=== PATIENT | female | born 2000 | race Caucasian/White ===

== ENCOUNTER 2019-10-18 21:49 | Emergency (ER) | payer BC, MEDICAID ==
[~2019-10-18] VITALS: Ht 160 cm; Wt 68.0 kg
[~2019-10-18 21:49] MED LIST: AMLO10TA80 PO; CETI10CA8 PO; ENAL10TA PO; FAMO20TA8 PO; FLUT9.9S NS; METO-293 PO
[2019-10-19 01:24] LABS: CLARITY URINE CLOUDY (CLEAR); COLOR URINE YELLOW (YELLOW); KETONES URINE TRACE (NEGATIVE); LEUKOCYTE ESTERASE URINE 1+ (NEGATIVE); NITRITE URINE POSITIVE (NEGATIVE); OCCULT BLOOD URINE 1+ (NEGATIVE); PH URINE 5.5 (4.5-8.0); PROTEIN URINE 3+ (NEGATIVE); SPECIFIC GRAVITY URINE 1.019 (1.005-1.030); UROBILINOGEN URINE 0.2 E.U./dL (0.2-1.0)
[2019-10-19 02:20] VITALS: BP 134/94
== END 2019-10-19 02:22 | disposition home or self-care (01) ==
LOC: ER 22:00
DX: N39.0 Urinary tract infection, site not specified (principal); I12.9 Hypertensive chronic kidney disease with stage 1 through stage 4 chronic kidney disease, or unspecified chronic kidney disease; N18.9 Chronic kidney disease, unspecified
CPT/HCPCS: 81003; 81025; 87077; 87186; 99283

== ENCOUNTER 2019-11-16 17:14 | Emergency (ER) | payer BC ==
[~2019-11-16] VITALS: Ht 165.1 cm; Wt 76.0 kg
[2019-11-16 17:57] VITALS: BP 161/104
== END 2019-11-16 23:03 | disposition left against medical advice (07) ==
LOC: ER 17:20
DX: Z53.21 Procedure and treatment not carried out due to patient leaving prior to being seen by health care provider (principal)

== ENCOUNTER 2021-01-20 12:42 | Emergency (ER) | payer BC, MEDICAID ==
[~2021-01-20] VITALS: Ht 160 cm; Wt 75.0 kg
[~2021-01-20 12:42] MED LIST changes: -ENAL10TA PO; +ENAL10TA19 PO
[2021-01-20 13:54] LABS: BASOPHILS % 1.3 % (0.0-2.0); EOSINOPHILS % 3.5 % (0.0-5.0); HEMATOCRIT. 31.8 % (36.0-48.0); LYMPHOCYTES % 22.8 % (20.0-50.0); MEAN CORPUSCULAR HEMOGLOBIN 25.2 pg (28.0-32.0); MEAN CORPUSCULAR VOLUME 80.2 fL (81.0-99.0); MEAN PLATELET VOLUME 9.7 fl (7.4-10.4); MONOCYTES % 4.4 % (2.0-8.0); PLATELET 353 x1000/uL (130-400); RED BLOOD CELL COUNT 3.97 mill/uL (4.2-5.4); RED CELL DISTRIBUTION WIDTH 16.7 % (11.6-14.6)
[2021-01-20] MEDS ORDERED: SODIUM CHLORIDE 0.9% 1,000 ML IV ONE (14:00)
[2021-01-20 14:05] LABS: CHLORIDE 107 mEq/L (98-107)
[2021-01-20 14:09] LABS: ETHANOL BLOOD < 10 mg/dL
[2021-01-20 14:14] LABS: CLARITY URINE CLEAR (CLEAR); COLOR URINE YELLOW (YELLOW); KETONES URINE NEGATIVE (NEGATIVE); LEUKOCYTE ESTERASE URINE NEGATIVE (NEGATIVE); NITRITE URINE NEGATIVE (NEGATIVE); OCCULT BLOOD URINE 2+ (NEGATIVE); PROTEIN URINE 2+ (NEGATIVE); SPECIFIC GRAVITY URINE 1.008 (1.005-1.030); UROBILINOGEN URINE 0.2 E.U./dL (0.2-1.0)
[2021-01-20 14:17] LABS: HCG SCREEN NEGATIVE
[2021-01-20 14:35] LABS: *AMPHETAMINES SCREEN URINE NEGATIVE (NEGATIVE); *BARBITURATES SCREEN URINE NEGATIVE (NEGATIVE); *BENZODIAZEPINES SCREEN URINE NEGATIVE (NEGATIVE); *COCAINE SCREEN URINE NEGATIVE (NEGATIVE)
[2021-01-20 14:36] LABS: CANNABINOID URINE SCREEN NEGATIVE (NEGATIVE); METHADONE URINE SCREEN NEGATIVE (NEGATIVE); OPIATES URINE SCREEN NEGATIVE (NEGATIVE); PHENCYCLIDINE URINE SCREEN NEGATIVE (NEGATIVE)
[2021-01-20 14:44] LABS: INR 0.9; PROTHROMBIN TIME 10.1 sec (9.6-11.0)
[2021-01-20 14:45] VITALS: BP 134/98
== END 2021-01-20 14:51 | disposition home or self-care (01) ==
LOC: ER 12:42
DX: N28.9 Disorder of kidney and ureter, unspecified (principal); I10 Essential (primary) hypertension; E86.0 Dehydration; Z79.899 Other long term (current) drug therapy
CPT/HCPCS: 36415; 71045; 80053; 80305; 80320; 81003; 81025; 83690; 84484; 84703; 85025; 85610; 93005; 96360; 99285; J7030; Z7610; G0480

== ENCOUNTER 2021-04-20 14:44 | Emergency (ER) | payer MEDICAID ==
[~2021-04-20] VITALS: Ht 152.4 cm; Wt 73.0 kg
[~2021-04-20 14:44] MED LIST changes: +ACET650T37 MT; +ALBU90AE IH; +ALLO100T PO; +AMIT25TA9 PO; +CALC30CA PO; +CARV25TA47 PO; +CHOL400D7 PO; -FAMO20TA8 PO; +FISH1CAP65 PO; +FLUO10TA3 PO; +FURO40TA5 PO; +GABA-290 PO; +HYDR200T35 PO; +MYCO500T PO; +PANT40TA51 PO; +PRED5TAB PO; +PRUC2TAB PO; +TURM500C6 PO
[2021-04-20] MEDS ORDERED: MORPHINE SULFATE 4 MG/ML CPJ (NOT FOR IM USE) IV STA (15:11)
[2021-04-20] MEDS ORDERED: ONDANSETRON HCL 4MG/2ML INJ IV STA (15:11)
[2021-04-20 15:47] LABS: BASOPHILS % 0.7 % (0.0-2.0); EOSINOPHILS % 1.2 % (0.0-5.0); HEMATOCRIT. 30.5 % (36.0-48.0); HEMOGLOBIN. 9.5 g/dL (12.0-16.0); LYMPHOCYTES % 19.8 % (20.0-50.0); MEAN CORPUSCULAR HEMOGLOBIN 22.9 pg (28.0-32.0); MEAN CORPUSCULAR VOLUME 73.8 fL (81.0-99.0); MEAN PLATELET VOLUME 9.1 fl (7.4-10.4); MONOCYTES % 3.2 % (2.0-8.0); NEUTROPHILS % 75.1 % (40.0-76.0); PLATELET 417 x1000/uL (130-400); RED BLOOD CELL COUNT 4.13 mill/uL (4.2-5.4); RED CELL DISTRIBUTION WIDTH 17.2 % (11.6-14.6)
[2021-04-20 15:51] LABS: CHLORIDE 104 mEq/L (98-107)
[2021-04-20 15:55] LABS: HCG SCREEN NEGATIVE; PROTHROMBIN TIME 10.3 sec (9.6-11.0)
[2021-04-20 16:00] LABS: CLARITY URINE TURBID (CLEAR); COLOR URINE YELLOW (YELLOW); KETONES URINE NEGATIVE (NEGATIVE); LEUKOCYTE ESTERASE URINE 2+ (NEGATIVE); NITRITE URINE NEGATIVE (NEGATIVE); OCCULT BLOOD URINE NEGATIVE (NEGATIVE); PH URINE 5.5 (4.5-8.0); PROTEIN URINE 3+ (NEGATIVE); SPECIFIC GRAVITY URINE 1.016 (1.005-1.030); UROBILINOGEN URINE 0.2 E.U./dL (0.2-1.0)
[2021-04-20] MEDS ORDERED: TOPUD PO (16:39)
[2021-04-20] MEDS ORDERED: SULF1TAB48 PO (16:39)
[2021-04-20 16:56] VITALS: BP 141/85
== END 2021-04-20 17:02 | disposition home or self-care (01) ==
LOC: ER 14:44
DX: N39.0 Urinary tract infection, site not specified (principal); R10.2 Pelvic and perineal pain; I12.9 Hypertensive chronic kidney disease with stage 1 through stage 4 chronic kidney disease, or unspecified chronic kidney disease; N18.9 Chronic kidney disease, unspecified; M32.9 Systemic lupus erythematosus, unspecified; Z88.1 Allergy status to other antibiotic agents
CPT/HCPCS: 36415; 74176; 80053; 81003; 81025; 83690; 84703; 85025; 85610; 96374; 96375; 99284; J2270; J2405

== ENCOUNTER 2021-05-08 14:06 | Inpatient (IN) | payer MEDICAID ==
[~2021-05-08] VITALS: Ht 160 cm; Wt 97.5 kg
[~2021-05-08 14:06] MED LIST changes: +SULF1TAB48 PO; +TOPUD PO
[2021-05-08 16:01] LABS: BASOPHILS % 0.6 % (0.0-2.0); EOSINOPHILS % 3.2 % (0.0-5.0); HEMATOCRIT. 24.6 % (36.0-48.0); HEMOGLOBIN. 7.7 g/dL (12.0-16.0); LYMPHOCYTES % 19.7 % (20.0-50.0); MEAN CORPUSCULAR HEMOGLOBIN 23.1 pg (28.0-32.0); MEAN CORPUSCULAR VOLUME 73.4 fL (81.0-99.0); MEAN PLATELET VOLUME 8.8 fl (7.4-10.4); NEUTROPHILS % 73.5 % (40.0-76.0); PLATELET 340 x1000/uL (130-400); RED BLOOD CELL COUNT 3.35 mill/uL (4.2-5.4); RED CELL DISTRIBUTION WIDTH 17.3 % (11.6-14.6)
[2021-05-08 16:06] LABS: CHLORIDE 114 mEq/L (98-107)
[2021-05-08] MEDS ORDERED: ACETAMINOPHEN 325MG TABLET PO PRN ×2 (19:30)
[2021-05-08] MEDS ORDERED: LORAZEPAM 0.5MG TABLET PO PRN (19:30)
[2021-05-08] MEDS ORDERED: ONDANSETRON HCL 4MG/2ML INJ IV PRN (19:30)
[2021-05-08] MEDS ORDERED: IPRATROPIUM/ALBUTEROL 0.5-3(2.5)MG/3ML NEB HHN PRN (19:30)
[2021-05-08] MEDS ORDERED: HYDROCODONE/ACETAMINOPHEN 5/325MG TABLET PO PRN (19:30)
[2021-05-08] MEDS ORDERED: DOCUSATE SODIUM 100MG CAPSULE PO PRN (19:30)
[2021-05-08 19:46] LABS: CLARITY URINE CLOUDY (CLEAR); COLOR URINE YELLOW (YELLOW); KETONES URINE NEGATIVE (NEGATIVE); LEUKOCYTE ESTERASE URINE TRACE (NEGATIVE); NITRITE URINE NEGATIVE (NEGATIVE); OCCULT BLOOD URINE TRACE (NEGATIVE); PROTEIN URINE 4+ (NEGATIVE); SPECIFIC GRAVITY URINE 1.014 (1.005-1.030); UROBILINOGEN URINE 0.2 E.U./dL (0.2-1.0)
[2021-05-08 20:11] LABS: *AMPHETAMINES SCREEN URINE NEGATIVE (NEGATIVE); *BARBITURATES SCREEN URINE NEGATIVE (NEGATIVE); *BENZODIAZEPINES SCREEN URINE NEGATIVE (NEGATIVE); *COCAINE SCREEN URINE NEGATIVE (NEGATIVE)
[2021-05-08 20:12] LABS: METHADONE URINE SCREEN NEGATIVE (NEGATIVE); OPIATES URINE SCREEN NEGATIVE (NEGATIVE); PHENCYCLIDINE URINE SCREEN NEGATIVE (NEGATIVE)
[2021-05-08 20:26] LABS: CANNABINOID URINE SCREEN NEGATIVE (NEGATIVE)
[2021-05-08] MEDS: CLONIDINE 0.1MG TABLET PO PRN (23:34)
[2021-05-09 05:43] LABS: BASOPHILS % 0.8 % (0.0-2.0); EOSINOPHILS % 3.5 % (0.0-5.0); HEMOGLOBIN. 7.7 g/dL (12.0-16.0); LYMPHOCYTES % 23.7 % (20.0-50.0); MEAN CORPUSCULAR HEMOGLOBIN 22.7 pg (28.0-32.0); MEAN CORPUSCULAR VOLUME 73.2 fL (81.0-99.0); MEAN PLATELET VOLUME 8.9 fl (7.4-10.4); MONOCYTES % 3.3 % (2.0-8.0); NEUTROPHILS % 68.7 % (40.0-76.0); PLATELET 314 x1000/uL (130-400); RED BLOOD CELL COUNT 3.41 mill/uL (4.2-5.4); RED CELL DISTRIBUTION WIDTH 17.9 % (11.6-14.6)
[2021-05-09] MEDS: CLONIDINE 0.1MG TABLET PO PRN (08:47)
[2021-05-09 08:50] VITALS: BP 160/109
[2021-05-09 09:30] VITALS: BP 145/96
[2021-05-09] MEDS ORDERED: *PATIENT'S OWN MEDICATION STORAGE XX SCH (09:30)
[2021-05-09 11:16] VITALS: BP 160/109
[2021-05-09 12:00] VITALS: BP 132/89
[2021-05-09] MEDS ORDERED: AMIT100T2 PO (13:08)
[2021-05-09] MEDS ORDERED: COLB PO (13:15)
[2021-05-09] MEDS ORDERED: MYCO500T PO (13:15)
[2021-05-09] MEDS ORDERED: COLC0.6C3 PO (13:15)
[2021-05-23] MEDS ORDERED: NAPR500T7 MT (16:58)
== END 2021-05-09 16:15 | disposition left against medical advice (07) | DRG 723 ==
LOC: ER 14:06 → 8WST 18:31 → EDBEDREQ 18:34 → EDBEDREQSVC 18:34 → CANRESERV 22:03 → ENRESERV 22:03 → EDBEDREQSVC 23:47 → EDBEDREQ 05-09 03:54 → ENRESERV 05-09 08:05
PROVIDERS: ADMIT Internal Medicine; ATTEND Internal Medicine
DX: T88.1XXA Other complications following immunization, not elsewhere classified, initial encounter (principal); M32.9 Systemic lupus erythematosus, unspecified; N18.4 Chronic kidney disease, stage 4 (severe); Q60.4 Renal hypoplasia, bilateral; D50.9 Iron deficiency anemia, unspecified; F17.200 Nicotine dependence, unspecified, uncomplicated; N28.9 Disorder of kidney and ureter, unspecified; D63.1 Anemia in chronic kidney disease; E66.9 Obesity, unspecified; E78.5 Hyperlipidemia, unspecified; E87.6 Hypokalemia; J45.909 Unspecified asthma, uncomplicated; F32.9 Major depressive disorder, single episode, unspecified; F41.9 Anxiety disorder, unspecified; M10.9 Gout, unspecified; Z53.29 Procedure and treatment not carried out because of patient's decision for other reasons; G40.909 Epilepsy, unspecified, not intractable, without status epilepticus; I12.9 Hypertensive chronic kidney disease with stage 1 through stage 4 chronic kidney disease, or unspecified chronic kidney disease; Z88.8 Allergy status to other drugs, medicaments and biological substances; Z79.899 Other long term (current) drug therapy; Z79.1 Long term (current) use of non-steroidal anti-inflammatories (NSAID); Z68.38 Body mass index [BMI] 38.0-38.9, adult; T50.B95A Adverse effect of other viral vaccines, initial encounter; R00.2 Palpitations; R80.9 Proteinuria, unspecified; Z71.3 Dietary counseling and surveillance
CPT/HCPCS: 36415; 71045; 80048; 80053; 80305; 81003; 83880; 84484; 85025; 93005; 99285

== ENCOUNTER 2021-07-15 20:25 | Emergency (ER) | payer MEDICAID ==
[~2021-07-15] VITALS: Ht 160 cm; Wt 94.0 kg
[~2021-07-15 20:25] MED LIST changes: -ACET650T37 MT; -ALLO100T PO; +AMIT100T2 PO; -AMIT25TA9 PO; -AMLO10TA80 PO; -CALC30CA PO; -CETI10CA8 PO; -CHOL400D7 PO; +COLC0.6C3 PO; -ENAL10TA19 PO; -METO-293 PO; +NAPR500T7 MT; -PRUC2TAB PO; -SULF1TAB48 PO; -TOPUD PO; -TURM500C6 PO
[2021-07-15 22:32] LABS: CLARITY URINE CLOUDY (CLEAR); COLOR URINE YELLOW (YELLOW); KETONES URINE NEGATIVE (NEGATIVE); LEUKOCYTE ESTERASE URINE 1+ (NEGATIVE); NITRITE URINE POSITIVE (NEGATIVE); OCCULT BLOOD URINE 3+ (NEGATIVE); PROTEIN URINE 3+ (NEGATIVE); SPECIFIC GRAVITY URINE 1.011 (1.005-1.030); UROBILINOGEN URINE 0.2 E.U./dL (0.2-1.0)
[2021-07-15 23:04] LABS: BASOPHILS % 0.5 % (0.0-2.0); EOSINOPHILS % 2.6 % (0.0-5.0); HEMOGLOBIN. 8.8 g/dL (12.0-16.0); LYMPHOCYTES % 25.4 % (20.0-50.0); MEAN CORPUSCULAR HEMOGLOBIN 22.9 pg (28.0-32.0); MEAN CORPUSCULAR VOLUME 73.2 fL (81.0-99.0); MEAN PLATELET VOLUME 8.6 fl (7.4-10.4); MONOCYTES % 3.6 % (2.0-8.0); NEUTROPHILS % 67.9 % (40.0-76.0); PLATELET 319 x1000/uL (130-400); RED BLOOD CELL COUNT 3.83 mill/uL (4.2-5.4); RED CELL DISTRIBUTION WIDTH 20.5 % (11.6-14.6)
[2021-07-15 23:10] LABS: CHLORIDE 106 mEq/L (98-107)
[2021-07-15] MEDS ORDERED: TOPUD MT (23:41)
[2021-07-15] MEDS ORDERED: CIPR500S3 PO (23:41)
[2021-07-15 23:57] VITALS: BP 133/93
== END 2021-07-16 00:05 | disposition home or self-care (01) ==
LOC: ER 20:25
DX: N18.6 End stage renal disease (principal); I10 Essential (primary) hypertension; N30.90 Cystitis, unspecified without hematuria; Z79.899 Other long term (current) drug therapy; Z98.890 Other specified postprocedural states
CPT/HCPCS: 36415; 80053; 81003; 81025; 85025; 93005; 99284

== ENCOUNTER 2021-07-29 17:56 | Inpatient (IN) | payer MEDICAID ==
[~2021-07-29] VITALS: Ht 160 cm; Wt 100.7 kg
[~2021-07-29 17:56] MED LIST changes: +CIPR500S3 PO; +TOPUD MT
[2021-07-29 18:46] LABS: CLARITY URINE CLOUDY (CLEAR); COLOR URINE YELLOW (YELLOW); KETONES URINE NEGATIVE (NEGATIVE); LEUKOCYTE ESTERASE URINE 1+ (NEGATIVE); NITRITE URINE NEGATIVE (NEGATIVE); OCCULT BLOOD URINE 3+ (NEGATIVE); PROTEIN URINE 3+ (NEGATIVE); SPECIFIC GRAVITY URINE 1.008 (1.005-1.030); UROBILINOGEN URINE 0.2 E.U./dL (0.2-1.0)
[2021-07-29 18:48] LABS: BASOPHILS % 0.7 % (0.0-2.0); EOSINOPHILS % 1.8 % (0.0-5.0); HEMATOCRIT. 25.6 % (36.0-48.0); MEAN CORPUSCULAR HEMOGLOBIN 23.3 pg (28.0-32.0); MEAN CORPUSCULAR VOLUME 74.1 fL (81.0-99.0); MEAN PLATELET VOLUME 8.9 fl (7.4-10.4); MONOCYTES % 3.3 % (2.0-8.0); NEUTROPHILS % 78.2 % (40.0-76.0); PLATELET 285 x1000/uL (130-400); RED BLOOD CELL COUNT 3.45 mill/uL (4.2-5.4); RED CELL DISTRIBUTION WIDTH 21.4 % (11.6-14.6)
[2021-07-29 18:52] LABS: CHLORIDE 112 mEq/L (98-107)
[2021-07-29] MEDS ORDERED: CEFTRIAXONE 1 G PREMIX 50 ML IV ONE (21:15)
[2021-07-29] MEDS ORDERED: AZITHROMYCIN 500 MG in DEXT 5% WATER 250 ML IV SCH (23:30)
[2021-07-29] MEDS ORDERED: LEVOFLOXACIN 500MG PREMIX 100 ML IV ONE (23:45)
[2021-07-30 04:00] VITALS: BP 179/117
[2021-07-30] MEDS ORDERED: CLONIDINE 0.1MG TABLET PO PRN (04:15)
[2021-07-30] MEDS ORDERED: LEVOFLOXACIN 500MG PREMIX 100 ML IV SCH (04:30)
[2021-07-30] MEDS ORDERED: MORPHINE SULFATE 2 MG/ML CPJ (NOT FOR IM USE) IV PRN (04:30)
[2021-07-30] MEDS: GABAPENTIN 300MG CAPSULE PO SCH ×3 (05:39→21:15)
[2021-07-30] MEDS: PANTOPRAZOLE 40MG DR TABLET PO SCH (05:40)
[2021-07-30 06:00] VITALS: BP 145/79
[2021-07-30 08:00] VITALS: BP 136/89
[2021-07-30] MEDS: CARVEDILOL 12.5MG TABLET PO SCH ×2 (08:21→21:15)
[2021-07-30] MEDS: FISH OIL/OMEGA-3 FATTY ACIDS 1000MG CAPSULE PO SCH (08:21)
[2021-07-30] MEDS: PREDNISONE 5MG TABLET PO SCH (08:21)
[2021-07-30 08:29] LABS: BASOPHILS % 0.5 % (0.0-2.0); EOSINOPHILS % 2.1 % (0.0-5.0); HEMATOCRIT. 25.2 % (36.0-48.0); HEMOGLOBIN. 8.1 g/dL (12.0-16.0); LYMPHOCYTES % 16.8 % (20.0-50.0); MEAN CORPUSCULAR HEMOGLOBIN 23.4 pg (28.0-32.0); MEAN CORPUSCULAR VOLUME 73.1 fL (81.0-99.0); MEAN PLATELET VOLUME 8.8 fl (7.4-10.4); MONOCYTES % 3.1 % (2.0-8.0); NEUTROPHILS % 77.5 % (40.0-76.0); PLATELET 266 x1000/uL (130-400); RED BLOOD CELL COUNT 3.45 mill/uL (4.2-5.4); RED CELL DISTRIBUTION WIDTH 21.9 % (11.6-14.6)
[2021-07-30] MEDS ORDERED: COLCHICINE 0.6MG TABLET PO SCH (09:00)
[2021-07-30] MEDS ORDERED: FUROSEMIDE 40MG TABLET PO SCH (09:00)
[2021-07-30] MEDS: FLUTICASONE PROPIONATE 50MCG/SPRAY BOTTLE BOTHNSTRLS SCH (09:32)
[2021-07-30] MEDS: FLUOXETINE HCL 10 MG CAPSULE PO SCH (09:33)
[2021-07-30] MEDS: MYCOPHENOLATE MOFETIL 250MG CAPSULE PO SCH ×2 (09:33→21:15)
[2021-07-30] MEDS ORDERED: HYDROCODONE/ACETAMINOPHEN 5/325MG TABLET PO PRN (11:00)
[2021-07-30] MEDS ORDERED: NALOXONE HCL 0.4MG/ML VIAL IV PRN (11:30)
[2021-07-30 12:00] VITALS: BP 133/82
[2021-07-30] MEDS: FUROSEMIDE 40MG/4ML VIAL IVP SCH (12:54)
[2021-07-30] MEDS: FERROUS SULFATE 325MG TABLET PO SCH ×2 (12:55→16:14)
[2021-07-30 16:00] VITALS: BP 120/81
[2021-07-30] MEDS: DOCUSATE SODIUM 100MG CAPSULE PO SCH (16:14)
[2021-07-30 20:00] VITALS: BP 121/82
[2021-07-30] MEDS ORDERED: AMITRIPTYLINE 50MG TABLET PO SCH (21:00)
[2021-07-30] MEDS ORDERED: AMITRIPTYLINE 25MG TABLET PO SCH (22:30)
[2021-07-31] VITALS: BP 106/64
[2021-07-31] MEDS ORDERED: LEVOFLOXACIN 250MG PREMIX 50 ML IV SCH (01:00)
[2021-07-31 04:00] VITALS: BP 112/76
[2021-07-31] MEDS: GABAPENTIN 300MG CAPSULE PO SCH ×2 (05:49→13:07)
[2021-07-31] MEDS: PANTOPRAZOLE 40MG DR TABLET PO SCH (05:49)
[2021-07-31 08:00] VITALS: BP 126/88
[2021-07-31] MEDS: FUROSEMIDE 40MG/4ML VIAL IVP SCH (08:30)
[2021-07-31] MEDS: FLUTICASONE PROPIONATE 50MCG/SPRAY BOTTLE BOTHNSTRLS SCH (08:30)
[2021-07-31] MEDS: FLUOXETINE HCL 10 MG CAPSULE PO SCH (08:30)
[2021-07-31] MEDS: FISH OIL/OMEGA-3 FATTY ACIDS 1000MG CAPSULE PO SCH (08:30)
[2021-07-31] MEDS: DOCUSATE SODIUM 100MG CAPSULE PO SCH ×2 (08:30→16:49)
[2021-07-31] MEDS: MYCOPHENOLATE MOFETIL 250MG CAPSULE PO SCH (08:30)
[2021-07-31] MEDS: FERROUS SULFATE 325MG TABLET PO SCH ×3 (08:31→16:50)
[2021-07-31] MEDS: CARVEDILOL 12.5MG TABLET PO SCH (08:31)
[2021-07-31] MEDS: PREDNISONE 5MG TABLET PO SCH (08:31)
[2021-07-31 12:00] VITALS: BP 124/73
[2021-07-31 12:43] LABS: BASOPHILS % 0.6 % (0.0-2.0); EOSINOPHILS % 2.7 % (0.0-5.0); HEMATOCRIT. 26.7 % (36.0-48.0); HEMOGLOBIN. 8.7 g/dL (12.0-16.0); LYMPHOCYTES % 20.1 % (20.0-50.0); MEAN CORPUSCULAR HEMOGLOBIN 23.6 pg (28.0-32.0); MEAN CORPUSCULAR VOLUME 72.5 fL (81.0-99.0); MEAN PLATELET VOLUME 8.9 fl (7.4-10.4); MONOCYTES % 3.2 % (2.0-8.0); NEUTROPHILS % 73.4 % (40.0-76.0); PLATELET 291 x1000/uL (130-400); RED BLOOD CELL COUNT 3.69 mill/uL (4.2-5.4); RED CELL DISTRIBUTION WIDTH 21.5 % (11.6-14.6)
[2021-07-31 15:23] VITALS: BP 124/73
[2021-07-31 16:00] VITALS: BP 120/75
[2021-08-01] MEDS ORDERED: FAMOTIDINE 20MG TABLET PO SCH (09:00)
[2021-08-01] MEDS ORDERED: LEVOFLOXACIN 250MG TABLET PO SCH (21:00)
[2021-08-03 04:07] LABS: ANA IFA Negative (.)
== END 2021-07-31 18:35 | disposition home or self-care (01) | DRG 470 ==
LOC: ER 17:56 → 7EST 23:17 → EDBEDREQ 23:18 → EDBEDREQTM 23:18 → ENRESERV 07-30 01:12
PROVIDERS: ADMIT Internal Medicine; ATTEND Internal Medicine
DX: I12.9 Hypertensive chronic kidney disease with stage 1 through stage 4 chronic kidney disease, or unspecified chronic kidney disease (principal); N17.0 Acute kidney failure with tubular necrosis; R65.11 Systemic inflammatory response syndrome (SIRS) of non-infectious origin with acute organ dysfunction; Q60.5 Renal hypoplasia, unspecified; E44.1 Mild protein-calorie malnutrition; E87.8 Other disorders of electrolyte and fluid balance, not elsewhere classified; N18.4 Chronic kidney disease, stage 4 (severe); M32.9 Systemic lupus erythematosus, unspecified; D63.1 Anemia in chronic kidney disease; N12 Tubulo-interstitial nephritis, not specified as acute or chronic; F41.9 Anxiety disorder, unspecified; I16.0 Hypertensive urgency; D64.9 Anemia, unspecified; E66.9 Obesity, unspecified; E78.5 Hyperlipidemia, unspecified; J45.909 Unspecified asthma, uncomplicated; R07.9 Chest pain, unspecified; G40.909 Epilepsy, unspecified, not intractable, without status epilepticus; F32.9 Major depressive disorder, single episode, unspecified; Z79.899 Other long term (current) drug therapy; Z88.1 Allergy status to other antibiotic agents; Z68.39 Body mass index [BMI] 39.0-39.9, adult; Z71.3 Dietary counseling and surveillance
CPT/HCPCS: 36415; 71045; 80048; 80053; 81003; 82570; 83880; 84156; 84484; 85025; 86160; 86162; 86256; 93005; 93306; 99285; J0456; J1940; J1956; J7060; J7512; J7517

== ENCOUNTER 2021-08-18 17:44 | Emergency (ER) | payer MEDICAID ==
[~2021-08-18] VITALS: Ht 160 cm; Wt 97.0 kg
[2021-08-18] MEDS ORDERED: ONDANSETRON HCL 4MG/2ML INJ IV ONE (23:00)
[2021-08-18] MEDS ORDERED: MORPHINE SULFATE 4 MG/ML CPJ (NOT FOR IM USE) IV ONE (23:00)
[2021-08-18 23:30] LABS: BASOPHILS % 0.9 % (0.0-2.0); EOSINOPHILS % 2.7 % (0.0-5.0); HEMATOCRIT. 32.2 % (36.0-48.0); HEMOGLOBIN. 10.1 g/dL (12.0-16.0); LYMPHOCYTES % 27.5 % (20.0-50.0); MEAN CORPUSCULAR HEMOGLOBIN 23.2 pg (28.0-32.0); MEAN CORPUSCULAR VOLUME 73.8 fL (81.0-99.0); MONOCYTES % 3.6 % (2.0-8.0); NEUTROPHILS % 65.3 % (40.0-76.0); PLATELET 379 x1000/uL (130-400); RED BLOOD CELL COUNT 4.36 mill/uL (4.2-5.4); RED CELL DISTRIBUTION WIDTH 21.5 % (11.6-14.6)
[2021-08-18 23:31] LABS: CHLORIDE 106 mEq/L (98-107)
[2021-08-18 23:41] LABS: CLARITY URINE CLEAR (CLEAR); COLOR URINE YELLOW (YELLOW); KETONES URINE NEGATIVE (NEGATIVE); LEUKOCYTE ESTERASE URINE TRACE (NEGATIVE); NITRITE URINE NEGATIVE (NEGATIVE); OCCULT BLOOD URINE 3+ (NEGATIVE); PROTEIN URINE 4+ (NEGATIVE); SPECIFIC GRAVITY URINE 1.016 (1.005-1.030); UROBILINOGEN URINE 0.2 E.U./dL (0.2-1.0)
[2021-08-19 05:00] VITALS: BP 124/95
== END 2021-08-19 05:26 | disposition home or self-care (01) ==
LOC: ER 17:44
DX: R10.9 Unspecified abdominal pain (principal); I10 Essential (primary) hypertension; M32.9 Systemic lupus erythematosus, unspecified; Z88.8 Allergy status to other drugs, medicaments and biological substances
CPT/HCPCS: 36415; 74176; 80053; 81003; 81025; 83605; 83690; 85025; 96374; 96375; 99285; J2270; J2405

== ENCOUNTER 2021-11-13 16:50 | Emergency (ER) | payer MEDICAID ==
[~2021-11-13] VITALS: Ht 165.1 cm; Wt 80.0 kg
[2021-11-13] MEDS ORDERED: KETOROLAC 60MG/2ML VIAL IM ONE (21:30)
[2021-11-13] MEDS ORDERED: ONDANSETRON 4MG ODT PO ONE (21:30)
[2021-11-13 23:09] LABS: BASOPHILS % 0.7 % (0.0-2.0); EOSINOPHILS % 2.7 % (0.0-5.0); HEMOGLOBIN. 10.5 g/dL (12.0-16.0); MEAN CORPUSCULAR VOLUME 75.5 fL (81.0-99.0); MEAN PLATELET VOLUME 8.8 fl (7.4-10.4); MONOCYTES % 2.7 % (2.0-8.0); NEUTROPHILS % 69.9 % (40.0-76.0); PLATELET 375 x1000/uL (130-400); RED BLOOD CELL COUNT 4.37 mill/uL (4.2-5.4); RED CELL DISTRIBUTION WIDTH 16.3 % (11.6-14.6)
[2021-11-13 23:13] LABS: CHLORIDE 105 mEq/L (98-107)
[2021-11-13 23:53] VITALS: BP 120/84
== END 2021-11-13 23:55 | disposition home or self-care (01) ==
LOC: ER 16:50
DX: G89.29 Other chronic pain (principal); R10.11 Right upper quadrant pain; I10 Essential (primary) hypertension; N28.9 Disorder of kidney and ureter, unspecified; M32.9 Systemic lupus erythematosus, unspecified; Z88.1 Allergy status to other antibiotic agents
CPT/HCPCS: 36415; 76705; 80053; 81025; 85025; 96372; 99284; J1885; Q0162

== ENCOUNTER 2022-02-15 13:36 | Emergency (ER) | payer MEDICAID ==
[~2022-02-15] VITALS: Ht 167.6 cm; Wt 97.0 kg
[2022-02-15 16:28] LABS: EOSINOPHILS % 3.5 % (0.0-5.0); HEMATOCRIT. 26.7 % (36.0-48.0); HEMOGLOBIN. 8.7 g/dL (12.0-16.0); MEAN CORPUSCULAR VOLUME 77.1 fL (81.0-99.0); MEAN PLATELET VOLUME 8.5 fl (7.4-10.4); MONOCYTES % 4.8 % (2.0-8.0); NEUTROPHILS % 61.7 % (40.0-76.0); PLATELET 291 x1000/uL (130-400); RED BLOOD CELL COUNT 3.47 mill/uL (4.2-5.4); RED CELL DISTRIBUTION WIDTH 18.5 % (11.6-14.6)
[2022-02-15 16:39] LABS: CHLORIDE 109 mEq/L (98-107)
[2022-02-15 16:43] LABS: HCG SCREEN NEGATIVE
[2022-02-15 18:59] VITALS: BP 153/92
== END 2022-02-15 19:00 | disposition home or self-care (01) ==
LOC: ER 13:36
DX: R53.1 Weakness (principal); I12.9 Hypertensive chronic kidney disease with stage 1 through stage 4 chronic kidney disease, or unspecified chronic kidney disease; N18.9 Chronic kidney disease, unspecified; M32.9 Systemic lupus erythematosus, unspecified; Z88.8 Allergy status to other drugs, medicaments and biological substances; Z98.890 Other specified postprocedural states
CPT/HCPCS: 36415; 71045; 80053; 81025; 84703; 85025; 93005; 99285

== ENCOUNTER 2022-05-15 10:41 | Inpatient (IN) | payer MEDICAID ==
[~2022-05-15] VITALS: Ht 160 cm; Wt 100.7 kg
[2022-05-15 18:53] LABS: BG BASE EXCESS -6.9 mmol/L (-2.0-2.0); BG CARBOXYHEMOGLOBIN 0.1 % (0.5-1.5); BG FRACTION INSPIRED OXYGEN 21; BG HCO3 ACT 18.2 mmol/L (22.0-26.0); BG METHEMOGLOBIN 0.3 % (0.0-1.5); BG OXYHEMOGLOBIN 95.6 % (94.0-97.0); BG PH 7.334 (7.350-7.450); BG PO2 89.4 mmHg (75.0-100.0); BG SAMPLE SITE LEFT RADIAL; BG TOTAL HEMOGLOBIN 11.2 g/dL (12.0-18.0); BG VENT MODE ROOM AIR
[2022-05-15 18:53] LABS: CLARITY URINE CLOUDY (CLEAR); COLOR URINE YELLOW (YELLOW); KETONES URINE NEGATIVE (NEGATIVE); LEUKOCYTE ESTERASE URINE TRACE (NEGATIVE); NITRITE URINE NEGATIVE (NEGATIVE); OCCULT BLOOD URINE 3+ (NEGATIVE); PH URINE 6.5 (4.5-8.0); PROTEIN URINE 3+ (NEGATIVE); SPECIFIC GRAVITY URINE 1.011 (1.005-1.030); UROBILINOGEN URINE 0.2 E.U./dL (0.2-1.0)
[2022-05-15 19:25] LABS: BASOPHILS % 0.8 % (0.0-2.0); EOSINOPHILS % 2.9 % (0.0-5.0); HEMATOCRIT. 30.5 % (36.0-48.0); HEMOGLOBIN. 9.4 g/dL (12.0-16.0); LYMPHOCYTES % 32.1 % (20.0-50.0); MEAN CORPUSCULAR HEMOGLOBIN 24.5 pg (28.0-32.0); MEAN CORPUSCULAR VOLUME 79.5 fL (81.0-99.0); MEAN PLATELET VOLUME 9.3 fl (7.4-10.4); MONOCYTES % 3.8 % (2.0-8.0); NEUTROPHILS % 60.4 % (40.0-76.0); PLATELET 326 x1000/uL (130-400); RED BLOOD CELL COUNT 3.83 mill/uL (4.2-5.4); RED CELL DISTRIBUTION WIDTH 16.9 % (11.6-14.6)
[2022-05-15 19:34] LABS: PROTHROMBIN TIME 10.6 sec (9.6-11.0)
[2022-05-15 19:35] LABS: CHLORIDE 108 mEq/L (98-107)
[2022-05-15 19:37] LABS: HCG SCREEN NEGATIVE
[2022-05-15 19:42] LABS: PHOSPHORUS 5.9 mg/dL (2.5-4.9)
[2022-05-15 21:40] VITALS: BP 182/119
[2022-05-15] MEDS ORDERED: CARV25TA47 PO (23:59)
[2022-05-15] MEDS ORDERED: ALLO100T PO (23:59)
[2022-05-15] MEDS ORDERED: PRED2.5T4 PO (23:59)
[2022-05-15] MEDS ORDERED: COLC0.6C3 PO (23:59)
[2022-05-15] MEDS ORDERED: CALC30CA PO (23:59)
[2022-05-15] MEDS ORDERED: FERR325T6 PO (23:59)
[2022-05-15] MEDS ORDERED: METO5TAB2 PO (23:59)
[2022-05-15] MEDS ORDERED: PANT40TA51 PO (23:59)
[2022-05-15] MEDS ORDERED: BIOT5000 PO (23:59)
[2022-05-15] MEDS ORDERED: [UNRECOGNIZED DRUG - CODE] PO (23:59)
[2022-05-15] MEDS ORDERED: FISH1CAP65 PO (23:59)
[2022-05-15] MEDS ORDERED: B12/1TAB PO (23:59)
[2022-05-15] MEDS ORDERED: AMIT100T2 PO (23:59)
[2022-05-15] MEDS ORDERED: FURO40TA5 PO (23:59)
[2022-05-15] MEDS ORDERED: DOCU100T PO (23:59)
[2022-05-15] MEDS ORDERED: SECU150P2 SQ (23:59)
[2022-05-15] MEDS ORDERED: FURO80TA3 PO (23:59)
[2022-05-15] MEDS ORDERED: SUCR1TAB PO (23:59)
[2022-05-15] MEDS ORDERED: FAMO40TA7 PO (23:59)
[2022-05-15] MEDS ORDERED: SERT-112 PO (23:59)
[2022-05-15] MEDS ORDERED: TURM500C6 PO (23:59)
[2022-05-16] MEDS ORDERED: CLONIDINE 0.1MG TABLET PO PRN (00:15)
[2022-05-16] MEDS ORDERED: AMLO5TAB88 PO (00:34)
[2022-05-16] MEDS: AMLODIPINE 10MG TABLET PO SCH ×2 (00:37→09:22)
[2022-05-16 01:15] VITALS: BP 129/79
[2022-05-16 04:00] VITALS: BP 132/91
[2022-05-16 06:42] LABS: BASOPHILS % 0.9 % (0.0-2.0); HEMATOCRIT. 25.4 % (36.0-48.0); HEMOGLOBIN. 8.1 g/dL (12.0-16.0); LYMPHOCYTES % 31.6 % (20.0-50.0); MEAN CORPUSCULAR HEMOGLOBIN 24.8 pg (28.0-32.0); MEAN CORPUSCULAR VOLUME 78.2 fL (81.0-99.0); MEAN PLATELET VOLUME 9.3 fl (7.4-10.4); MONOCYTES % 4.9 % (2.0-8.0); NEUTROPHILS % 59.6 % (40.0-76.0); PLATELET 274 x1000/uL (130-400); RED BLOOD CELL COUNT 3.25 mill/uL (4.2-5.4); RED CELL DISTRIBUTION WIDTH 16.7 % (11.6-14.6)
[2022-05-16 06:50] LABS: CHLORIDE 107 mEq/L (98-107)
[2022-05-16 06:58] LABS: HDL CHOLESTEROL 31 mg/dL (40-59); LDL CHOLESTEROL 103 mg/dL (5-100); PHOSPHORUS 6.2 mg/dL (2.5-4.9)
[2022-05-16 08:32] VITALS: BP 126/82
[2022-05-16] MEDS ORDERED: COLCHICINE 0.6MG TABLET PO SCH (09:00)
[2022-05-16] MEDS: FERROUS SULFATE 325MG TABLET PO SCH (09:23)
[2022-05-16] MEDS: FUROSEMIDE 40MG TABLET PO SCH (09:23)
[2022-05-16] MEDS: METOPROLOL TARTRATE 50MG TABLET PO SCH ×2 (09:23→21:00)
[2022-05-16] MEDS: DOCUSATE SODIUM 100MG CAPSULE PO SCH (09:23)
[2022-05-16] MEDS: SUCRALFATE 1G TABLET PO SCH ×2 (09:24→17:26)
[2022-05-16] MEDS: PREDNISONE 5MG TABLET PO SCH (09:24)
[2022-05-16] MEDS: SERTRALINE HCL 100MG TABLET PO SCH (09:24)
[2022-05-16] MEDS: ALLOPURINOL 100 MG TABLET PO SCH (09:25)
[2022-05-16] MEDS: CARVEDILOL 12.5MG TABLET PO SCH ×2 (09:25→17:26)
[2022-05-16] MEDS: METOCLOPRAMIDE HCL 5MG TABLET PO SCH ×2 (09:25→17:26)
[2022-05-16] MEDS ORDERED: PNEUMOCOCCAL 23-VAL P-SAC VAC 0.5 ML IM ONE (10:00)
[2022-05-16] MEDS: ACETAMINOPHEN 325MG TABLET PO PRN ×2 (11:01→17:26)
[2022-05-16] MEDS: ONDANSETRON HCL 4MG/2ML INJ IV PRN ×2 (11:01→22:06)
[2022-05-16 12:03] VITALS: BP 137/85
[2022-05-16 14:20] LABS: HEPATITIS B SURFACE ANTIGEN NEGATIVE
[2022-05-16 16:20] VITALS: BP 118/79
[2022-05-16 20:00] VITALS: BP 107/61
[2022-05-16] MEDS ORDERED: EPOETIN ALFA 10000UNITS/ML VIAL SUBCUT NR (21:00)
[2022-05-16] MEDS: AMITRIPTYLINE 25MG TABLET PO SCH (21:15)
[2022-05-16] MEDS: GABAPENTIN 300MG CAPSULE PO SCH (21:15)
[2022-05-16] MEDS: FAMOTIDINE 20MG TABLET PO SCH (21:16)
[2022-05-17] VITALS (20 sets, daily range): BP systolic 110–160; BP diastolic 60–112
[2022-05-17] MEDS ORDERED: HEPARIN 1,000 UNITS PREMIX 0 ML IV ONE (07:14)
[2022-05-17] MEDS ORDERED: FENTANYL CITRATE/PF 50MCG/ML 2ML VIAL ONE (07:14)
[2022-05-17] MEDS ORDERED: LIDOCAINE HCL 1% 10 MG/ML 10ML VIAL ONE (07:14)
[2022-05-17] MEDS ORDERED: LIDOCAINE HCL/EPINEPHRINE 1%-EPI 1:100,000 20 ML VIAL ONE (07:27)
[2022-05-17] MEDS ORDERED: CLINDAMYCIN 600 MG PREMIX 50 ML IV NR (07:30)
[2022-05-17] MEDS ORDERED: MIDAZOLAM HCL 2 MG/2 ML VIAL ONE (07:40)
[2022-05-17 07:56] LABS: BASOPHILS % 0.6 % (0.0-2.0); EOSINOPHILS % 2.6 % (0.0-5.0); HEMATOCRIT. 27.8 % (36.0-48.0); HEMOGLOBIN. 8.8 g/dL (12.0-16.0); LYMPHOCYTES % 33.4 % (20.0-50.0); MEAN CORPUSCULAR HEMOGLOBIN 24.8 pg (28.0-32.0); MEAN CORPUSCULAR VOLUME 78.7 fL (81.0-99.0); MONOCYTES % 3.8 % (2.0-8.0); NEUTROPHILS % 59.6 % (40.0-76.0); PLATELET 282 x1000/uL (130-400); RED BLOOD CELL COUNT 3.54 mill/uL (4.2-5.4); RED CELL DISTRIBUTION WIDTH 16.6 % (11.6-14.6)
[2022-05-17] MEDS ORDERED: FENTANYL CITRATE/PF 50MCG/ML 2ML VIAL IV ONE (08:15)
[2022-05-17] MEDS ORDERED: MIDAZOLAM HCL 5 MG/ML VIAL IV ONE (08:15)
[2022-05-17] MEDS ORDERED: MIDAZOLAM HCL 5 MG/5 ML VIAL IV ONE (08:30)
[2022-05-17] MEDS: CARVEDILOL 12.5MG TABLET PO SCH ×2 (09:00→17:00)
[2022-05-17] MEDS: AMLODIPINE 10MG TABLET PO SCH (09:00)
[2022-05-17] MEDS: METOPROLOL TARTRATE 50MG TABLET PO SCH ×2 (09:00→20:00)
[2022-05-17] MEDS: SERTRALINE HCL 100MG TABLET PO SCH (09:40)
[2022-05-17] MEDS: CALCIUM ACETATE 667MG CAPSULE PO SCH ×3 (09:40→18:23)
[2022-05-17] MEDS: DOCUSATE SODIUM 100MG CAPSULE PO SCH (09:40)
[2022-05-17] MEDS: CALCITRIOL 0.25MCG CAPSULE PO SCH (09:40)
[2022-05-17] MEDS: SUCRALFATE 1G TABLET PO SCH ×2 (09:41→18:23)
[2022-05-17] MEDS: FERROUS SULFATE 325MG TABLET PO SCH (09:41)
[2022-05-17] MEDS: PREDNISONE 5MG TABLET PO SCH (09:41)
[2022-05-17] MEDS: FUROSEMIDE 40MG TABLET PO SCH (09:41)
[2022-05-17] MEDS: ALLOPURINOL 100 MG TABLET PO SCH (09:41)
[2022-05-17] MEDS: METOCLOPRAMIDE HCL 5MG TABLET PO SCH ×2 (09:42→18:23)
[2022-05-17] MEDS: ACETAMINOPHEN 325MG TABLET PO PRN ×2 (09:43→19:59)
[2022-05-17] MEDS: FAMOTIDINE 20MG TABLET PO SCH (20:00)
[2022-05-17] MEDS: GABAPENTIN 300MG CAPSULE PO SCH (20:00)
[2022-05-17] MEDS: AMITRIPTYLINE 25MG TABLET PO SCH (20:00)
[2022-05-18] VITALS (8 sets, daily range): BP systolic 109–142; BP diastolic 60–96
[2022-05-18] MEDS: METOPROLOL TARTRATE 50MG TABLET PO SCH ×2 (08:55→20:47)
[2022-05-18] MEDS: SERTRALINE HCL 100MG TABLET PO SCH (08:55)
[2022-05-18] MEDS: METOCLOPRAMIDE HCL 5MG TABLET PO SCH ×2 (08:56→18:51)
[2022-05-18] MEDS: CALCIUM ACETATE 667MG CAPSULE PO SCH ×3 (08:56→18:51)
[2022-05-18] MEDS: CALCITRIOL 0.25MCG CAPSULE PO SCH (08:56)
[2022-05-18] MEDS: DOCUSATE SODIUM 100MG CAPSULE PO SCH (08:56)
[2022-05-18] MEDS: PREDNISONE 5MG TABLET PO SCH (08:56)
[2022-05-18] MEDS: ALLOPURINOL 100 MG TABLET PO SCH (08:56)
[2022-05-18] MEDS: CARVEDILOL 12.5MG TABLET PO SCH ×2 (08:56→18:51)
[2022-05-18] MEDS: FERROUS SULFATE 325MG TABLET PO SCH (08:57)
[2022-05-18] MEDS: FUROSEMIDE 40MG TABLET PO SCH (08:57)
[2022-05-18] MEDS: AMLODIPINE 10MG TABLET PO SCH (08:57)
[2022-05-18] MEDS: SUCRALFATE 1G TABLET PO SCH ×2 (09:10→18:51)
[2022-05-18] MEDS: ACETAMINOPHEN 325MG TABLET PO PRN ×2 (09:16→16:52)
[2022-05-18] MEDS: ONDANSETRON HCL 4MG/2ML INJ IV PRN (14:47)
[2022-05-18] MEDS: AMITRIPTYLINE 25MG TABLET PO SCH (20:46)
[2022-05-18] MEDS: GABAPENTIN 300MG CAPSULE PO SCH (20:46)
[2022-05-18] MEDS: FAMOTIDINE 20MG TABLET PO SCH (20:47)
[2022-05-19] VITALS: BP 126/78
[2022-05-19 04:00] VITALS: BP 130/70
[2022-05-19 07:38] VITALS: BP 120/77
[2022-05-19] MEDS: CALCITRIOL 0.25MCG CAPSULE PO SCH (09:17)
[2022-05-19] MEDS: DOCUSATE SODIUM 100MG CAPSULE PO SCH (09:17)
[2022-05-19] MEDS: CALCIUM ACETATE 667MG CAPSULE PO SCH ×2 (09:17→13:30)
[2022-05-19] MEDS: CARVEDILOL 12.5MG TABLET PO SCH (09:17)
[2022-05-19] MEDS: SUCRALFATE 1G TABLET PO SCH (09:18)
[2022-05-19] MEDS: METOPROLOL TARTRATE 50MG TABLET PO SCH (09:18)
[2022-05-19] MEDS: ALLOPURINOL 100 MG TABLET PO SCH (09:18)
[2022-05-19] MEDS: SERTRALINE HCL 100MG TABLET PO SCH (09:18)
[2022-05-19] MEDS: FERROUS SULFATE 325MG TABLET PO SCH (09:18)
[2022-05-19] MEDS: FUROSEMIDE 40MG TABLET PO SCH (09:19)
[2022-05-19] MEDS: AMLODIPINE 10MG TABLET PO SCH (09:19)
[2022-05-19] MEDS: PREDNISONE 5MG TABLET PO SCH (09:19)
[2022-05-19] MEDS: METOCLOPRAMIDE HCL 5MG TABLET PO SCH (09:19)
[2022-05-19 12:00] VITALS: BP 124/76
[2022-05-19 13:58] VITALS: BP 124/76
[2022-05-19] MEDS: ONDANSETRON HCL 4MG/2ML INJ IV PRN (14:34)
== END 2022-05-19 15:40 | disposition home or self-care (01) | DRG 469 ==
LOC: ER 10:41 → 6WST 20:17 → EDBEDREQ 20:28 → EDBEDREQTM 20:28 → ENRESERV 21:09
PROVIDERS: ADMIT Internal Medicine; ATTEND Internal Medicine
PROC: 5A1D70Z Performance of Urinary Filtration, Intermittent, Less than 6 Hours Per Day (ICD-10-PCS; 2022-05-16)
PROC: 0JH63XZ Insertion of Tunneled Vascular Access Device into Chest Subcutaneous Tissue and Fascia, Percutaneous Approach (ICD-10-PCS; principal; 2022-05-17)
PROC: 02HV33Z Insertion of Infusion Device into Superior Vena Cava, Percutaneous Approach (ICD-10-PCS; 2022-05-17)
PROC: B518ZZA Fluoroscopy of Superior Vena Cava, Guidance (ICD-10-PCS; 2022-05-17)
PROC: B548ZZA Ultrasonography of Superior Vena Cava, Guidance (ICD-10-PCS; 2022-05-17)
PROC: 5A1D70Z Performance of Urinary Filtration, Intermittent, Less than 6 Hours Per Day (ICD-10-PCS; 2022-05-18)
DX: N17.9 Acute kidney failure, unspecified (principal); I12.0 Hypertensive chronic kidney disease with stage 5 chronic kidney disease or end stage renal disease; D63.1 Anemia in chronic kidney disease; E87.8 Other disorders of electrolyte and fluid balance, not elsewhere classified; E83.39 Other disorders of phosphorus metabolism; N18.6 End stage renal disease; M32.9 Systemic lupus erythematosus, unspecified; F32.A Depression, unspecified; F41.9 Anxiety disorder, unspecified; E66.9 Obesity, unspecified; J45.909 Unspecified asthma, uncomplicated; N39.0 Urinary tract infection, site not specified; E78.5 Hyperlipidemia, unspecified; G40.909 Epilepsy, unspecified, not intractable, without status epilepticus; Z20.822 Contact with and (suspected) exposure to COVID-19; F32.9 Major depressive disorder, single episode, unspecified; Z99.2 Dependence on renal dialysis; Z79.1 Long term (current) use of non-steroidal anti-inflammatories (NSAID); Z79.899 Other long term (current) drug therapy; Z82.49 Family history of ischemic heart disease and other diseases of the circulatory system; Z68.39 Body mass index [BMI] 39.0-39.9, adult
CPT/HCPCS: 36415; 36558; 36600; 71045; 76770; 76937; 77001; 80048; 80053; 80061; 81003; 82375; 82805; 83540; 83550; 83735; 83970; 84100; 84703; 85025; 86705; 86709; 86803; 86850; 86900; 87340; 87426; 90732; 93005; 93306; 99152; 99153; 99285; C1750; C1769; C9803; J0885; J1644; J2250; J2405; J3010; J3490; J7512; J8597; U0003; U0005; G0500

== ENCOUNTER 2022-06-21 12:44 | Inpatient (IN) | payer MEDICAID ==
[~2022-06-21] VITALS: Ht 160 cm; Wt 94.3 kg
[~2022-06-21 12:44] MED LIST changes: -ALBU90AE IH; +ALLO100T PO; +AMLO5TAB88 PO; +B12/1TAB PO; +BIOT5000 PO; +CALC30CA PO; -CIPR500S3 PO; +DOCU100T PO; +FAMO40TA7 PO; +FERR325T6 PO; -FLUO10TA3 PO; -FLUT9.9S NS; +FURO80TA3 PO; -GABA-290 PO; -HYDR200T35 PO; +METO5TAB2 PO; -MYCO500T PO; -NAPR500T7 MT; +PRED2.5T4 PO; -PRED5TAB PO; +SECU150P2 SQ; +SERT-112 PO; +SUCR1TAB PO; -TOPUD MT; +TURM500C6 PO; +[UNRECOGNIZED DRUG - CODE] PO
[2022-06-21 14:04] LABS: BASOPHILS % 1.2 % (0.0-2.0); EOSINOPHILS % 5.3 % (0.0-5.0); HEMATOCRIT. 28.6 % (36.0-48.0); HEMOGLOBIN. 9.2 g/dL (12.0-16.0); LYMPHOCYTES % 30.6 % (20.0-50.0); MEAN CORPUSCULAR HEMOGLOBIN 26.7 pg (28.0-32.0); MEAN CORPUSCULAR VOLUME 83.3 fL (81.0-99.0); MEAN PLATELET VOLUME 9.5 fl (7.4-10.4); MONOCYTES % 5.2 % (2.0-8.0); NEUTROPHILS % 57.7 % (40.0-76.0); PLATELET 244 x1000/uL (130-400); RED BLOOD CELL COUNT 3.43 mill/uL (4.2-5.4); RED CELL DISTRIBUTION WIDTH 20.1 % (11.6-14.6)
[2022-06-21 14:09] LABS: CHLORIDE 101 mEq/L (98-107)
[2022-06-21] MEDS ORDERED: IPRATROPIUM/ALBUTEROL 0.5-3(2.5)MG/3ML NEB HHN PRN (15:00)
[2022-06-21] MEDS ORDERED: CLONIDINE 0.1MG TABLET PO PRN (15:00)
[2022-06-21] MEDS ORDERED: ACETAMINOPHEN 325MG TABLET PO PRN (15:00)
[2022-06-21] MEDS ORDERED: ONDANSETRON HCL 4MG/2ML INJ IV PRN (15:00)
[2022-06-21] MEDS ORDERED: VANCOMYCIN 1G PREMIX 200 ML IV SCH (16:45)
[2022-06-21 17:00] VITALS: BP 137/84
[2022-06-21] MEDS: CALCIUM ACETATE 667MG CAPSULE PO SCH (18:27)
[2022-06-21] MEDS: CARVEDILOL 12.5MG TABLET PO SCH (18:27)
[2022-06-21 20:00] VITALS: BP 128/81
[2022-06-21] MEDS ORDERED: VANCOMYCIN 2,000 MG in DEXT 5% WATER 500 ML IV NR (20:00)
[2022-06-21 20:35] LABS: HEPATITIS B SURFACE ANTIGEN NEGATIVE
[2022-06-21] MEDS: HYDRALAZINE HCL 50MG TABLET PO SCH (21:00)
[2022-06-22] VITALS: BP 99/67
[2022-06-22] MEDS: DIPHENHYDRAMINE 50MG/ML VIAL IV PRN ×4 (00:37→17:13)
[2022-06-22 04:00] VITALS: BP 135/86
[2022-06-22 06:28] LABS: BASOPHILS % 0.7 % (0.0-2.0); EOSINOPHILS % 0.3 % (0.0-5.0); HEMATOCRIT. 30.8 % (36.0-48.0); HEMOGLOBIN. 9.9 g/dL (12.0-16.0); LYMPHOCYTES % 15.8 % (20.0-50.0); MEAN CORPUSCULAR HEMOGLOBIN 26.6 pg (28.0-32.0); MEAN CORPUSCULAR VOLUME 83.1 fL (81.0-99.0); MEAN PLATELET VOLUME 9.6 fl (7.4-10.4); MONOCYTES % 2.4 % (2.0-8.0); NEUTROPHILS % 80.8 % (40.0-76.0); PLATELET 234 x1000/uL (130-400); RED BLOOD CELL COUNT 3.71 mill/uL (4.2-5.4); RED CELL DISTRIBUTION WIDTH 20.8 % (11.6-14.6)
[2022-06-22 06:46] LABS: CHLORIDE 100 mEq/L (98-107)
[2022-06-22 06:53] LABS: PHOSPHORUS 4.8 mg/dL (2.5-4.9)
[2022-06-22] MEDS ORDERED: ALTEPLASE 100MG/VIAL IV ONE (07:30)
[2022-06-22 08:00] VITALS: BP 130/82
[2022-06-22] MEDS: AMLODIPINE 10MG TABLET PO SCH (08:56)
[2022-06-22] MEDS: CALCIUM ACETATE 667MG CAPSULE PO SCH ×3 (08:56→17:10)
[2022-06-22] MEDS: HYDRALAZINE HCL 50MG TABLET PO SCH ×2 (08:56→21:00)
[2022-06-22] MEDS: CARVEDILOL 12.5MG TABLET PO SCH ×2 (08:56→21:00)
[2022-06-22] MEDS ORDERED: ALTEPLASE 2MG/VIAL ITC SCH (09:00)
[2022-06-22] MEDS ORDERED: DIPHENHYDRAMINE 50MG/ML VIAL IV NR (09:15)
[2022-06-22] MEDS ORDERED: FAMOTIDINE 20MG/2ML VIAL IV NR (09:15)
[2022-06-22 12:00] VITALS: BP 93/45
[2022-06-22] MEDS ORDERED: HEPARIN SODIUM 1,000 UNIT/1ML VIAL IV SCH (15:30)
[2022-06-22 16:00] VITALS: BP 115/66
[2022-06-22] MEDS: METOCLOPRAMIDE HCL 5MG TABLET PO SCH (17:10)
[2022-06-22 20:00] VITALS: BP 98/60
[2022-06-22] MEDS ORDERED: FAMOTIDINE 20MG TABLET PO SCH (21:00)
[2022-06-22] MEDS ORDERED: FAMOTIDINE 40MG TABLET PO SCH (21:00)
[2022-06-22] MEDS ORDERED: AMITRIPTYLINE 25MG TABLET PO SCH (21:00)
[2022-06-22] MEDS ORDERED: AMITRIPTYLINE 50MG TABLET PO SCH (21:00)
[2022-06-22] MEDS: PANTOPRAZOLE 40MG DR TABLET PO SCH (22:11)
[2022-06-23] VITALS: BP 117/77
[2022-06-23 04:00] VITALS: BP 96/55
[2022-06-23] MEDS: PANTOPRAZOLE 40MG DR TABLET PO SCH (06:06)
[2022-06-23 08:00] VITALS: BP 109/69
[2022-06-23] MEDS: CALCIUM ACETATE 667MG CAPSULE PO SCH (08:54)
[2022-06-23] MEDS: METOCLOPRAMIDE HCL 5MG TABLET PO SCH (08:54)
[2022-06-23] MEDS: AMLODIPINE 10MG TABLET PO SCH (08:55)
[2022-06-23] MEDS: HYDRALAZINE HCL 50MG TABLET PO SCH (08:55)
[2022-06-23] MEDS: CARVEDILOL 12.5MG TABLET PO SCH (08:55)
[2022-06-23] MEDS ORDERED: PREDNISONE 5MG TABLET PO SCH (09:00)
[2022-06-23] MEDS ORDERED: ALLOPURINOL 100 MG TABLET PO SCH (09:00)
[2022-06-23] MEDS ORDERED: SERTRALINE HCL 100MG TABLET PO SCH (09:00)
[2022-06-23] MEDS ORDERED: COLCHICINE 0.6MG TABLET PO SCH (09:00)
[2022-06-23 12:00] VITALS: BP 113/64
[2022-06-23 12:41] VITALS: BP 113/64
[2022-06-25] MEDS ORDERED: FUROSEMIDE 40MG TABLET PO SCH (09:00)
== END 2022-06-23 13:32 | disposition home or self-care (01) | DRG 206 ==
LOC: ER 12:44 → 8WST 14:20 → ENRESERV 15:59
PROVIDERS: ADMIT Internal Medicine; ATTEND Internal Medicine
PROC: 3E04317 Introduction of Other Thrombolytic into Central Vein, Percutaneous Approach (ICD-10-PCS; principal; 2022-06-22)
PROC: 5A1D70Z Performance of Urinary Filtration, Intermittent, Less than 6 Hours Per Day (ICD-10-PCS; 2022-06-22)
DX: T82.868A Thrombosis due to vascular prosthetic devices, implants and grafts, initial encounter (principal); I12.0 Hypertensive chronic kidney disease with stage 5 chronic kidney disease or end stage renal disease; M32.14 Glomerular disease in systemic lupus erythematosus; D63.1 Anemia in chronic kidney disease; N03.9 Chronic nephritic syndrome with unspecified morphologic changes; N18.6 End stage renal disease; F41.9 Anxiety disorder, unspecified; E78.5 Hyperlipidemia, unspecified; L29.8 Other pruritus; T36.8X5A Adverse effect of other systemic antibiotics, initial encounter; Y92.238 Other place in hospital as the place of occurrence of the external cause; F32.9 Major depressive disorder, single episode, unspecified; Y84.8 Other medical procedures as the cause of abnormal reaction of the patient, or of later complication, without mention of misadventure at the time of the procedure; G40.909 Epilepsy, unspecified, not intractable, without status epilepticus; J45.909 Unspecified asthma, uncomplicated; Z99.2 Dependence on renal dialysis; Z88.1 Allergy status to other antibiotic agents; Z79.899 Other long term (current) drug therapy; Y92.89 Other specified places as the place of occurrence of the external cause
CPT/HCPCS: 36415; 71045; 80053; 80202; 83735; 84100; 85025; 86705; 86709; 86803; 86850; 86900; 87340; 87426; 93005; 93970; 99285; J1200; J1644; J2997; J3370; J3490; J7060; J7512; J8597

== ENCOUNTER 2024-10-19 22:00 | Emergency (ER) | payer MEDICAID ==
[~2024-10-19] VITALS: Ht 160 cm; Wt 75.0 kg
[~2024-10-19 22:00] MED LIST changes: +ACET-2708 MT; -ALLO100T PO; -AMLO5TAB88 PO; +APIX2.5T MT; -B12/1TAB PO; +BACL-141 MT; +BELI200A SQ; -BIOT5000 PO; +DIPH25TA23 MT; -FERR325T6 PO; +FREM225S SQ; +HYDR200T35 MT; +KEPP500 PO; +LINA290C MT; -METO5TAB2 PO; +REN800 MT; -SECU150P2 SQ; +SENN-362 MT; -SERT-112 PO; -SUCR1TAB PO; -TURM500C6 PO; +UBRO100T
[2024-10-19 22:32] VITALS: O2SAT 99
[2024-10-19 22:35] VITALS: TEMP 36.72516
[2024-10-19 23:40] LABS: BASOPHILS % 0.9 % (0.0-2.0); EOSINOPHILS % 2.6 % (0.0-5.0); HEMATOCRIT. 35.8 % (36.0-48.0); HEMOGLOBIN. 12.6 g/dL (12.0-16.0); LYMPHOCYTES % 25.4 % (20.0-50.0); MEAN CORPUSCULAR HEMOGLOBIN 34.4 pg (28.0-32.0); MEAN CORPUSCULAR HGB CONC 35.2 g/dL (31.0-37.0); MEAN CORPUSCULAR VOLUME 97.8 fL (81.0-99.0); MEAN PLATELET VOLUME 9.2 fl (7.4-10.4); MONOCYTES % 4.9 % (2.0-8.0); NEUTROPHILS % 66.2 % (40.0-76.0); PLATELET 252 x1000/uL (130-400); RED BLOOD CELL COUNT 3.66 mill/uL (4.2-5.4); RED CELL DISTRIBUTION WIDTH 15.3 % (11.6-14.6); WHITE BLOOD COUNT 10.9 x1000/uL (4.5-11.0)
[2024-10-19 23:55] LABS: HCG SCREEN NEGATIVE
[2024-10-20 01:20] LABS: POTASSIUM 4.8 mEq/L (3.5-5.1)
[2024-10-20 01:22] LABS: CALCIUM 9.8 mg/dL (8.7-10.4)
[2024-10-20 01:35] LABS: CREATININE 8.7 mg/dL (0.6-1.0)
[2024-10-20] MEDS: ACETAMINOPHEN 325MG TABLET PO ONE (01:58)
[2024-10-20 04:32] LABS: CLARITY URINE TURBID (CLEAR); COLOR URINE DARK YELLOW (YELLOW); GLUCOSE URINE NEGATIVE (NEGATIVE); KETONES URINE TRACE (NEGATIVE); LEUKOCYTE ESTERASE URINE TRACE (NEGATIVE); NITRITE URINE NEGATIVE (NEGATIVE); OCCULT BLOOD URINE NEGATIVE (NEGATIVE); PH URINE 5.5 (4.5-8.0); PROTEIN URINE 2+ (NEGATIVE); SPECIFIC GRAVITY URINE 1.016 (1.005-1.030)
[2024-10-20] MEDS: FUROSEMIDE 40MG TABLET PO ONE (04:36)
[2024-10-20] MEDS ORDERED: LIDO700A15 TP (04:37)
[2024-10-20] MEDS ORDERED: TOPUD MT (04:37)
[2024-10-20 05:12] VITALS: BP 127/73; PULSE 68; RESP 16; O2SAT 98
[2024-10-20 05:36] LABS: SQUAMOUS EPITHELIAL CELL URINE 2+ /lpf (RARE/1+)
[2024-10-20 05:37] LABS: BACTERIA URINE 1+; RBC URINE 0-2 /hpf (0-2)
== END 2024-10-20 05:12 | disposition home or self-care (01) ==
LOC: ER 22:00
DX: R07.81 Pleurodynia (principal); F32.A Depression, unspecified; G43.909 Migraine, unspecified, not intractable, without status migrainosus; I12.0 Hypertensive chronic kidney disease with stage 5 chronic kidney disease or end stage renal disease; N18.6 End stage renal disease; D64.9 Anemia, unspecified; Z79.01 Long term (current) use of anticoagulants; Z79.899 Other long term (current) drug therapy; Z88.1 Allergy status to other antibiotic agents; Z99.2 Dependence on renal dialysis; Z98.890 Other specified postprocedural states
CPT/HCPCS: 36415; 74176; 80048; 81003; 84703; 85025; 99284

== ENCOUNTER 2025-05-09 14:32 | Emergency (ER) | payer MEDICAID ==
[~2025-05-09] VITALS: Ht 167.6 cm; Wt 62.0 kg
[~2025-05-09 14:32] MED LIST changes: +LIDO-53 TP; +TOPUD MT
[2025-05-09 14:34] VITALS: O2SAT 99
[2025-05-09 14:37] VITALS: BP 129/80; PULSE 97; RESP 16; TEMP 37.1; O2SAT 100
[2025-05-09] MEDS: ACETAMINOPHEN 325MG TABLET PO SCH (18:27)
[2025-05-09 18:28] LABS: BASOPHILS % 1.1 % (0.0-2.0); EOSINOPHILS % 2.4 % (0.0-5.0); HEMATOCRIT. 33.8 % (36.0-48.0); HEMOGLOBIN. 11.1 g/dL (12.0-16.0); LYMPHOCYTES % 25.1 % (20.0-50.0); MEAN CORPUSCULAR HEMOGLOBIN 30.9 pg (28.0-32.0); MEAN CORPUSCULAR HGB CONC 32.7 g/dL (31.0-37.0); MEAN CORPUSCULAR VOLUME 94.7 fL (81.0-99.0); MEAN PLATELET VOLUME 9.5 fl (7.4-10.4); MONOCYTES % 5.1 % (2.0-8.0); NEUTROPHILS % 66.3 % (40.0-76.0); PLATELET 187 x1000/uL (130-400); RED BLOOD CELL COUNT 3.57 mill/uL (4.2-5.4); RED CELL DISTRIBUTION WIDTH 15.4 % (11.6-14.6); WHITE BLOOD COUNT 7.1 x1000/uL (4.5-11.0)
[2025-05-09] MEDS: ONDANSETRON HCL 4MG/2ML INJ IM SCH (18:28)
[2025-05-09 18:36] LABS: POTASSIUM 3.8 mEq/L (3.5-5.1)
[2025-05-09 18:44] LABS: CLARITY URINE CLEAR (CLEAR); COLOR URINE DARK YELLOW (YELLOW); GLUCOSE URINE NEGATIVE (NEGATIVE); KETONES URINE NEGATIVE (NEGATIVE); LEUKOCYTE ESTERASE URINE NEGATIVE (NEGATIVE); NITRITE URINE NEGATIVE (NEGATIVE); OCCULT BLOOD URINE 3+ (NEGATIVE); PH URINE 8.5 (4.5-8.0); PROTEIN URINE 2+ (NEGATIVE); SPECIFIC GRAVITY URINE 1.015 (1.005-1.030); UROBILINOGEN URINE 0.2 E.U./dL (0.2-1.0)
[2025-05-09 18:47] LABS: CREATININE 6.9 mg/dL (0.6-1.0)
[2025-05-09 18:56] LABS: HCG SCREEN NEGATIVE
[2025-05-09 19:07] LABS: SQUAMOUS EPITHELIAL CELL URINE 2+ /lpf (RARE/1+); WBC URINE 0-2 /hpf (0-2)
[2025-05-09 19:08] LABS: BACTERIA URINE 1+
[2025-05-09] MEDS ORDERED: FLUT9.9S BOTHNSTRLS (19:25)
[2025-05-09] MEDS ORDERED: HYDR-4001 MT (19:25)
[2025-05-09] MEDS ORDERED: AZIT250T12 MT (19:25)
[2025-05-09] MEDS ORDERED: D-ME473S50 PO (19:25)
== END 2025-05-09 19:46 | disposition home or self-care (01) ==
LOC: ER 14:32
DX: J01.80 Other acute sinusitis (principal); R51.9 Headache, unspecified; G40.909 Epilepsy, unspecified, not intractable, without status epilepticus; F32.A Depression, unspecified; I12.0 Hypertensive chronic kidney disease with stage 5 chronic kidney disease or end stage renal disease; N18.6 End stage renal disease; Z79.01 Long term (current) use of anticoagulants; Z79.52 Long term (current) use of systemic steroids; Z79.899 Other long term (current) drug therapy; Z88.1 Allergy status to other antibiotic agents; Z99.2 Dependence on renal dialysis
CPT/HCPCS: 99285; 70450; 80048; 81003; 81025; 84703; 85025; 36415; 96372; J2405

== ENCOUNTER 2025-08-25 19:40 | Emergency (ER) | payer MEDICAID ==
[~2025-08-25] VITALS: Ht 160 cm; Wt 79.0 kg
[~2025-08-25 19:40] MED LIST changes: -ACET-2708 MT; -AMIT100T2 PO; +AMIT50TA15 PO; -APIX2.5T MT; +AZAT50TA24 PO; -BACL-141 MT; +CALC-1305 PO; -CALC30CA PO; -CARV25TA47 PO; -COLC0.6C3 PO; +CYAN-50 PO; -DIPH25TA23 MT; -DOCU100T PO; -FAMO40TA7 PO; -FISH1CAP65 PO; +FOLI0.4T6 PO; -FREM225S SQ; -FURO80TA3 PO; +GABA-1180 PO; -HYDR200T35 MT; +HYDR200T35 PO; +LACO100T4 PO; -LIDO-53 TP; +LINA145C PO; -LINA290C MT; +MAGN400T26 PO; +MIDO5TAB4 PO; -PANT40TA51 PO; -PRED2.5T4 PO; -REN800 MT; +RIBO100T9 PO; -SENN-362 MT; +SERT200C PO; +SEVE800T8 PO; +THIA50TA12 PO; -TOPUD MT; -UBRO100T; +VENL-180 PO; -[UNRECOGNIZED DRUG - CODE] PO
[2025-08-25 19:53] VITALS: TEMP 36.7; O2SAT 100
[2025-08-25 21:05] LABS: BASOPHILS % 1.0 % (0.0-2.0); EOSINOPHILS % 1.4 % (0.0-5.0); HEMATOCRIT. 33.4 % (36.0-48.0); HEMOGLOBIN. 11.1 g/dL (12.0-16.0); LYMPHOCYTES % 16.5 % (20.0-50.0); MEAN PLATELET VOLUME 8.7 fl (7.4-10.4); MONOCYTES % 5.3 % (2.0-8.0); NEUTROPHILS % 75.8 % (40.0-76.0); PLATELET 202 x1000/uL (130-400); RED BLOOD CELL COUNT 3.47 mill/uL (4.2-5.4); RED CELL DISTRIBUTION WIDTH 16.6 % (11.6-14.6)
[2025-08-25 21:25] LABS: UREA NITROGEN BLOOD 16.0 mg/dL (9-23)
[2025-08-25 21:28] LABS: CREATININE 4.4 mg/dL (0.6-1.0)
[2025-08-26] MEDS: ACETAMINOPHEN 325MG TABLET PO ONE (00:08)
[2025-08-26] MEDS: MECLIZINE 25MG TABLET PO ONE (00:08)
[2025-08-26] MEDS: METOCLOPRAMIDE HCL 10MG/2ML VIAL IV ONE (00:10)
[2025-08-26] MEDS: LORAZEPAM 2MG/ML UD SYRINGE IV SCH (00:13)
[2025-08-26] MEDS ORDERED: MECL-299 MT (00:42)
[2025-08-26] MEDS ORDERED: ONDA4TAB50 MT (00:42)
[2025-08-26 01:06] VITALS: BP 137/87; PULSE 93; RESP 12; O2SAT 100
== END 2025-08-26 01:08 | disposition home or self-care (01) ==
LOC: ER 19:40
DX: R42 Dizziness and giddiness (principal); N18.6 End stage renal disease; Z79.624 Long term (current) use of inhibitors of nucleotide synthesis; Z79.631 Long term (current) use of antimetabolite agent; Z79.899 Other long term (current) drug therapy; Z88.1 Allergy status to other antibiotic agents; Z99.2 Dependence on renal dialysis
CPT/HCPCS: 99284; 71045; 80048; 81025; 85025; 36415; 96374; 96375; J8597; J2060; J2765

== ENCOUNTER 2025-09-06 13:00 | Inpatient (IN) | payer MEDICAID ==
[~2025-09-06] VITALS: Ht 160 cm; Wt 81.7 kg
[~2025-09-06 13:00] MED LIST changes: +MECL-299 MT; +ONDA4TAB50 MT
[2025-09-06 13:06] VITALS: O2SAT 98
[2025-09-06 15:10] LABS: BASOPHILS % 1.2 % (0.0-2.0); EOSINOPHILS % 2.9 % (0.0-5.0); HEMATOCRIT. 29.9 % (36.0-48.0); HEMOGLOBIN. 9.9 g/dL (12.0-16.0); LYMPHOCYTES % 23.8 % (20.0-50.0); MEAN PLATELET VOLUME 9.5 fl (7.4-10.4); MONOCYTES % 5.0 % (2.0-8.0); NEUTROPHILS % 67.1 % (40.0-76.0); PLATELET 196 x1000/uL (130-400); RED BLOOD CELL COUNT 3.05 mill/uL (4.2-5.4); RED CELL DISTRIBUTION WIDTH 15.7 % (11.6-14.6)
[2025-09-06 15:24] LABS: UREA NITROGEN BLOOD 61 mg/dL (9-23)
[2025-09-06 15:26] LABS: ASPARTATE AMINOTRANSFERASE 19 IU/L (<34); BILIRUBIN DIRECT < 0.1 mg/dL (<=3.0); BILIRUBIN TOTAL 0.3 mg/dL (0.1-1.0); PROTEIN TOTAL 6.5 g/dL (6.0-8.3); TROPONIN I HIGH SENSITIVITY 4 ng/L (3.0-34)
[2025-09-06 15:41] LABS: CREATININE 8.7 mg/dL (0.6-1.0)
[2025-09-06 15:46] LABS: HCG SCREEN NEGATIVE
[2025-09-06] MEDS ORDERED: BELIMUMAB 200 MG SQ SCH (16:30)
[2025-09-06 16:51] LABS: TRIGLYCERIDE 158.0 mg/dL (0-150)
[2025-09-06 16:52] LABS: LDL CHOLESTEROL 77.0 mg/dL (5-100)
[2025-09-06 16:56] LABS: T4 FREE 1.23 ng/dL (0.89-1.76)
[2025-09-06] MEDS ORDERED: VITAMIN D3 PO SCH (17:00)
[2025-09-06] MEDS ORDERED: CALCIUM CARBONATE PO SCH (17:00)
[2025-09-06] MEDS ORDERED: [UNRECOGNIZED DRUG - OTHER] PO SCH (17:00)
[2025-09-06] MEDS: ONDANSETRON HCL 4MG/2ML INJ IV PRN (18:46)
[2025-09-06] MEDS: SEVELAMER CARBONATE 800 MG TABLET PO SCH (19:59)
[2025-09-06 20:14] LABS: CLARITY URINE CLEAR (CLEAR); COLOR URINE YELLOW (YELLOW); GLUCOSE URINE NEGATIVE (NEGATIVE); KETONES URINE TRACE (NEGATIVE); LEUKOCYTE ESTERASE URINE NEGATIVE (NEGATIVE); NITRITE URINE NEGATIVE (NEGATIVE); OCCULT BLOOD URINE 2+ (NEGATIVE); PH URINE 8.5 (4.5-8.0); PROTEIN URINE 1+ (NEGATIVE); SPECIFIC GRAVITY URINE 1.011 (1.005-1.030); UROBILINOGEN URINE 0.2 E.U./dL (0.2-1.0)
[2025-09-06 20:16] LABS: *AMPHETAMINES SCREEN URINE NEGATIVE (NEGATIVE); *BARBITURATES SCREEN URINE NEGATIVE (NEGATIVE); *BENZODIAZEPINES SCREEN URINE NEGATIVE (NEGATIVE); *COCAINE SCREEN URINE NEGATIVE (NEGATIVE)
[2025-09-06 20:17] LABS: CANNABINOID URINE SCREEN NEGATIVE (NEGATIVE); ECSTASY MDMA SCREEN URINE NEGATIVE (NEGATIVE); METHADONE URINE SCREEN NEGATIVE (NEGATIVE); OPIATES URINE SCREEN NEGATIVE (NEGATIVE); PHENCYCLIDINE URINE SCREEN NEGATIVE (NEGATIVE)
[2025-09-06 20:50] LABS: BACTERIA URINE TRACE; SQUAMOUS EPITHELIAL CELL URINE 1+ /lpf (RARE/1+); WBC URINE 0-2 /hpf (0-2)
[2025-09-06] MEDS ORDERED: LINACLOTIDE 145 MCG PO SCH (21:00)
[2025-09-06] MEDS ORDERED: AMITRIPTYLINE HCL 50 MG PO SCH (21:00)
[2025-09-06] MEDS ORDERED: RIBOFLAVIN 200 MG PO SCH (21:00)
[2025-09-06] MEDS: AMITRIPTYLINE 25MG TABLET PO SCH (23:38)
[2025-09-06] MEDS: LEVETIRACETAM 500MG TABLET PO SCH (23:39)
[2025-09-06] MEDS: HYDROXYCHLOROQUINE SULFATE 200MG TABLET PO SCH (23:39)
[2025-09-06] MEDS: GABAPENTIN 300MG CAPSULE PO SCH (23:39)
[2025-09-07] VITALS (14 sets, daily range): BP systolic 87–123; BP diastolic 46–78; PULSE 69–99; RESP 18–20; TEMP 36.1–36.4; O2SAT 99–100
[2025-09-07] MEDS ORDERED: THIAMINE HCL 50 MG PO SCH (09:00)
[2025-09-07] MEDS ORDERED: VENLAFAXINE HCL 75MG TABLET PO SCH (09:00)
[2025-09-07] MEDS ORDERED: THIAMINE HCL 100MG TABLET PO SCH (09:00)
[2025-09-07] MEDS ORDERED: FOLIC ACID 0.4 MG PO SCH (09:00)
[2025-09-07 09:56] LABS: BASOPHILS % 1.0 % (0.0-2.0); EOSINOPHILS % 3.2 % (0.0-5.0); HEMATOCRIT. 30.5 % (36.0-48.0); HEMOGLOBIN. 10.0 g/dL (12.0-16.0); LYMPHOCYTES % 31.0 % (20.0-50.0); MEAN PLATELET VOLUME 9.8 fl (7.4-10.4); MONOCYTES % 5.8 % (2.0-8.0); NEUTROPHILS % 59.0 % (40.0-76.0); PLATELET 175 x1000/uL (130-400); RED BLOOD CELL COUNT 3.12 mill/uL (4.2-5.4); RED CELL DISTRIBUTION WIDTH 15.4 % (11.6-14.6)
[2025-09-07 10:22] LABS: UREA NITROGEN BLOOD 57.0 mg/dL (9-23)
[2025-09-07] MEDS: CYANOCOBALAMIN 1000MCG TABLET PO SCH (10:22)
[2025-09-07] MEDS: PANTOPRAZOLE SODIUM 40 MG/VIAL IV SCH (10:22)
[2025-09-07] MEDS: MAGNESIUM OXIDE 400MG TABLET PO SCH (10:23)
[2025-09-07] MEDS: AZATHIOPRINE 50MG TABLET PO SCH (10:23)
[2025-09-07] MEDS: CALCIUM CARBONATE/VITAMIN D3 500MG TABLET PO SCH (10:24)
[2025-09-07] MEDS: THIAMINE HCL 100MG TABLET PO SCH (10:24)
[2025-09-07] MEDS: FOLIC ACID 1MG TABLET PO SCH (10:25)
[2025-09-07] MEDS: SERTRALINE HCL 100MG TABLET PO SCH (10:25)
[2025-09-07] MEDS: VENLAFAXINE HCL 37.5MG TABLET PO SCH (10:26)
[2025-09-07 11:01] LABS: CREATININE 9.3 mg/dL (0.6-1.0)
[2025-09-07] MEDS ORDERED: METOPROLOL TARTRATE 5MG/5ML VIAL IV PRN (14:00)
[2025-09-07] MEDS: ACETAMINOPHEN 325MG TABLET PO PRN (14:37)
[2025-09-07] MEDS: IBUPROFEN 600MG TABLET PO PRN (21:18)
[2025-09-08] VITALS: BP 106/64; PULSE 74; RESP 20; TEMP 41.7; O2SAT 99
[2025-09-08 04:00] VITALS: BP 110/68; PULSE 72; RESP 18; TEMP 36.4; O2SAT 100
[2025-09-08 08:00] VITALS: BP 105/67; PULSE 82; RESP 18; TEMP 36.3; O2SAT 97
[2025-09-08 12:30] VITALS: BP 110/70; PULSE 84; RESP 18; TEMP 36.3; O2SAT 96
[2025-09-08 16:30] VITALS: BP 104/64; PULSE 88; RESP 18; TEMP 36.3; O2SAT 97
[2025-09-08 20:00] VITALS: BP 98/72; PULSE 80; RESP 18; TEMP 36.2; O2SAT 98
[2025-09-09] VITALS (8 sets, daily range): BP systolic 94–116; BP diastolic 54–75; PULSE 78–88; RESP 18–20; TEMP 36.4–36.8; O2SAT 97–100
[2025-09-09 08:16] LABS: BASOPHILS % 0.8 % (0.0-2.0); EOSINOPHILS % 3.0 % (0.0-5.0); HEMATOCRIT. 30.5 % (36.0-48.0); HEMOGLOBIN. 10.1 g/dL (12.0-16.0); LYMPHOCYTES % 24.0 % (20.0-50.0); MEAN PLATELET VOLUME 9.6 fl (7.4-10.4); MONOCYTES % 5.4 % (2.0-8.0); NEUTROPHILS % 66.8 % (40.0-76.0); PLATELET 194 x1000/uL (130-400); RED BLOOD CELL COUNT 3.14 mill/uL (4.2-5.4); RED CELL DISTRIBUTION WIDTH 14.8 % (11.6-14.6)
[2025-09-09 08:30] LABS: UREA NITROGEN BLOOD 53 mg/dL (9-23)
[2025-09-09 08:32] LABS: PHOSPHORUS 5.0 mg/dL (2.5-4.9)
[2025-09-09 11:06] LABS: CREATININE 8.3 mg/dL (0.6-1.0)
[2025-09-09] MEDS: SODIUM CHLORIDE 0.9% 250 ML IV ONE (11:15)
[2025-09-10] VITALS (9 sets, daily range): BP systolic 92–130; BP diastolic 49–73; PULSE 73–80; RESP 14–20; TEMP 36.3–36.6; O2SAT 73–100
[2025-09-10] MEDS: MIDODRINE HCL 5MG TABLET PO SCH (10:37)
[2025-09-10 14:12] LABS: HEPATITIS A AB IGM NEGATIVE (Negative)
[2025-09-10 14:13] LABS: HEPATITIS B CORE AB IGM NEGATIVE (Negative)
[2025-09-10 14:14] LABS: HEPATITIS C AB NON REACTIVE (Neg) (Negative)
== END 2025-09-10 15:38 | disposition home or self-care (01) | DRG 48 ==
LOC: ER 13:00 → 7WST 15:14 → EDBEDREQ 15:15 → EDBEDREQTM 15:15 → ENRESERV 20:47
PROVIDERS: ADMIT Internal Medicine; ATTEND Internal Medicine
PROC: 5A1D70Z Performance of Urinary Filtration, Intermittent, Less than 6 Hours Per Day (ICD-10-PCS; principal; 2025-09-07)
PROC: 5A1D70Z Performance of Urinary Filtration, Intermittent, Less than 6 Hours Per Day (ICD-10-PCS; 2025-09-09)
DX: G90.89 Other disorders of autonomic nervous system (principal); I12.0 Hypertensive chronic kidney disease with stage 5 chronic kidney disease or end stage renal disease; N18.6 End stage renal disease; R07.89 Other chest pain; D63.1 Anemia in chronic kidney disease; Z99.2 Dependence on renal dialysis; F32.A Depression, unspecified; M32.9 Systemic lupus erythematosus, unspecified; J45.909 Unspecified asthma, uncomplicated; F32.9 Major depressive disorder, single episode, unspecified; G40.909 Epilepsy, unspecified, not intractable, without status epilepticus; F41.9 Anxiety disorder, unspecified; I95.9 Hypotension, unspecified; E78.5 Hyperlipidemia, unspecified; Z88.1 Allergy status to other antibiotic agents
CPT/HCPCS: 36415; 71045; 80048; 80061; 80076; 80305; 80339; 81003; 83036; 83735; 83880; 84100; 84439; 84443; 84484; 84703; 85025; 86705; 86709; 87340; 90935; 93005; 93306; 93880; 96374; 96375; 99285; J2405; J2470; J7500